=== PATIENT | female | born 1980 | race Caucasian/White ===

== ENCOUNTER 2019-09-02 13:39 | Emergency (ER) | payer BC ==
[2019-09-02 13:51] VITALS: TEMP 98.4
[2019-09-02] MEDS ORDERED: DIPH,PERTUS(ACELL)TETVAC-LF 0.5 ML VIAL IM ONE (14:09)
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
[2019-09-02] MEDS ORDERED: IBUPROFEN 800 MG TAB PO STA (15:14)
[2019-09-02 16:04] VITALS: BP 121/87; PULSE 83; RESP 18
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
== END 2019-09-02 15:58 | disposition left against medical advice (07) ==
LOC: EC 13:39
DX: S00.81XA Abrasion of other part of head, initial encounter (principal); S80.211A Abrasion, right knee, initial encounter; S60.512A Abrasion of left hand, initial encounter; S60.511A Abrasion of right hand, initial encounter; Z23 Encounter for immunization; V86.56XA Driver of dirt bike or motor/cross bike injured in nontraffic accident, initial encounter; Y92.488 Other paved roadways as the place of occurrence of the external cause; Y93.55 Activity, bike riding
CPT/HCPCS: 70450; 70486; 90471; 90715; 99284